=== PATIENT | female | born 1985 | race African-American/Black ===

== ENCOUNTER 2019-01-10 11:14 | Emergency (ER) | payer OTHER ==
[~2019-01-10] VITALS: Ht 165.1 cm; Wt 68.9 kg
[~2019-01-10 11:14] MED LIST: PRENAT PO
[2019-01-10 11:32] VITALS: BP 120/74; PULSE 88; RESP 18; Ht 165.1 cm; Wt 68.9 kg
--- NOTE | 2019-01-10 14:09 | ERD ---
ER Documentation Chief Complaint Chief Complaint abd pain radiating to back , 7 weeks preg , denies any vag bleed HPI Patient is a 33-year-old female who states she is G8, P5 approximately 5 weeks complaining of bilateral lower pelvic cramping pain. No fever. No nausea or vomiting. No vaginal bleeding. No urinary symptoms. ROS All systems reviewed and are negative except as per history of present illness. Medications Home Meds Reported Medications Multivit/Min/Fol Ac/Iron/Pren* ( S*) 1 Tab Tab, 1 TAB PO DAILY, TAB 10/03/14 Allergies Allergies: Coded Allergies: No Known Allergy (Verified , 11/04/14) PMhx/Soc Medical and Surgical Hx: pt denies Medical Hx, pt denies Surgical Hx History of Surgery: No Anesthesia Reaction: No Hx Neurological Disorder: No Hx Respiratory Disorders: No Hx Cardiac Disorders: No Hx Psychiatric Problems: No Hx Miscellaneous Medical Probl: No Hx Alcohol Use: No Hx Substance Use: No Hx Tobacco Use: No Smoking Status: Never smoker FmHx Family History: No diabetes Physical Exam Vitals Vital Signs Date Temp Pulse Resp B/P (MAP) Pulse Ox O2 O2 Flow FiO2 Time Delivery Rate 01/10/19 98.1 88 18 120/74 99 11:32 (89) Physical Exam INITIAL VITAL SIGNS: Reviewed by me GENERAL: Awake, alert and oriented x 4, well appearing, nontoxic, speaking in full sentences. No acute distress RESPIRATORY: Clear to auscultation bilaterally. Symmetric chest wall rise. No wheezing or rales. No accessory muscle use. CV: Regular rate and rhythm. No murmurs, rubs, or gallops. ABDOMEN: Soft, non-distended. Nontender. Negative [place]. Negative McBurneys point tenderness. No CVA tenderness bilaterally. No guarding. No rebound. Procedures/MDM Patient has pelvic pain during . No vaginal bleeding. Ultrasound shows intrauterine approximately 6 weeks 4 days, only one pole is noted, 2 yolk sacs are noted. No heart tones noted. This may represent demise versus early . Patient refused having any blood work done. I explained to the patient the importance of having blood work done to check the beta-hCG but patient still refused. Cannot fully rule out ectopic . Patient counseled regarding my diagnostic impression and care plan. Prior to discharge all questions answered. Pt agrees with treatment plan and understands strict return precautions. Pt is instructed to follow up with primary care provider within 24-48 hours. Precautionary instructions provided including instructions to return to the ER if not improving or for any worsening or changing symptoms or concerns. Departure Diagnosis: Primary Impression: Pelvic pain affecting in first trimester, antepartum Condition: Stable Patient Instructions: Pelvic Pain, Unknown Cause Additional Instructions: Call your primary care doctor TOMORROW for an appointment during the next 1-2 days.See the doctor sooner or return here if your condition worsens before your appointment time. LUPE DAVIS PA-C Jan 10, 2019 14:09
== END 2019-01-10 14:30 | disposition home or self-care (01) ==
LOC: FTE 11:14
DX: O26.891 Other specified pregnancy related conditions, first trimester (principal); R10.2 Pelvic and perineal pain; Z3A.01 Less than 8 weeks gestation of pregnancy
CPT/HCPCS: 76801; 76817; Z7502